=== PATIENT | female | born 1960 | race Caucasian/White ===

== ENCOUNTER → 2022-09-12 13:20 | Outpatient (BNVA) | payer BC, SELFPAY | PROVIDERS: PCP Physician Assistant Medical; Visit Provider Hospitalist | DX: R06.09 Other forms of dyspnea (principal); G47.33 Obstructive sleep apnea (adult) (pediatric); Z86.711 Personal history of pulmonary embolism | CPT/HCPCS: 94618 ==

== ENCOUNTER → 2022-10-01 09:03 | Outpatient (REF) | payer BC, SELFPAY ==
--- NOTE | 2022-10-01 13:10 | PFT_ITS ---
INDICATION: Dyspnea. SPIROMETRY: FEV1 to FVC 86% with an FEV1 of 3.13 L, which is 107% predicted and FVC of 3.64 L, which is 95% predicted. No significant response to bronchodilators noted. Maximum voluntary ventilation 117% predicted. LUNG VOLUMES: Total lung capacity 93% predicted. DIFFUSION CAPACITY: DLCO of 84% predicted. COMPARISONS: None. INTERPRETATION: No obstructive nor restrictive ventilatory defects identified. No significant response to bronchodilators noted. Normal maximum voluntary ventilation. Lung volumes are within normal limits. Diffusion capacity is low normal but still within normal limits. Clinical correlation warranted. Geovani Lynn MD MR/MODL / [id number]
== END ==
LOC: HO.SL 09:03
PROVIDERS: PCP Physician Assistant Medical; Visit Provider Hospitalist
DX: G47.33 Obstructive sleep apnea (adult) (pediatric) (principal); R06.00 Dyspnea, unspecified
CPT/HCPCS: 94060; 94727; 94729; 95806

== ENCOUNTER → 2022-10-31 09:14 | Outpatient (BNVA) | payer BC, SELFPAY | PROVIDERS: PCP Physician Assistant Medical; Visit Provider Hospitalist | DX: R06.00 Dyspnea, unspecified (principal); G47.33 Obstructive sleep apnea (adult) (pediatric) ==